=== PATIENT | male | born 1990 | race Caucasian/White ===

== ENCOUNTER 2019-10-09 12:56 | Inpatient (IN) | payer OTHER ==
[2019-10-09 19:31] VITALS: BMI 30.2
--- NOTE | 2019-10-09 20:41 | HP ---
CIWA Score Nausea/Vomitin-Mild Nausea/No Vomiting Muscle Tremors: 3 Anxiety: 4-Mod. Anxious/Guarded Agitation: 4-Moderately Restless Paroxysmal Sweats: 3 Orientation: 0-Oriented Tacttile Disturbances: 0-None Auditory Disturbances: 0-None Visual Disturbances: 0-None Headache: 0-None Present CIWA-Ar Total Score: 15 - Admission Criteria [facility]ASAS Guidelines: Admission for Medically Managed Detox: Requires at least one of the followin. CIWA greater than 12 2. Seizures within the past 24 hours 3. Delirium tremens within the past 24 hours 4. Hallucinations within the past 24 hours 5. Acute intervention needed for co occurring medical disorder 6. Acute intervention needed for co occurring psychiatric disorder 7. Severe withdrawal that cannot be handled at a lower level of care (continued vomiting, continued diarrhea, abnormal vital signs) requiring intravenous medication and/or fluids 8. Admission [facility] Chief Complaint: Alcohol withdrawal symptoms Allergies/Adverse Reactions: Allergies Allergy/AdvReac Type Severity Reaction Status Date / Time No Known Allergies Allergy Verified 10/09/19 19:31 History of Present Illness: 29 years old male with 15 years of alcohol dependence is seeking admission to detox. Patient reports that he has been in multiple inpatient detox and the longest period of sobriety is 30 months. He has medical history seizure and reports psych. history of bipolar disorder, schizophrenia and depression. He denies suicide attempt and suicidal ideation at this time. Patient is detoxing from alcohol, Xanax and heroin. His drug screen is positive for only cocaine, MET and BZO. Patient has active prescription of BZO that was dispensed on 2018. Exam Limitations: Intoxication - Ebola screening Have you traveled outside of the country in the last 21 days: No (NN) Have you had contact with anyone from an Ebola affected area: No Do you have a fever: No - Review of Systems Constitutional: Chills, Malaise, Changes in sleep EENT: reports: No Symptoms Reported Respiratory: reports: No Symptoms reported Cardiac: reports: No Symptoms Reported GI: reports: Poor Fluid Intake, Abdominal cramping : reports: No Symptoms Reported Musculoskeletal: reports: Back Pain, Other (ABDOMINAL DISCOMFORT) Integumentary: reports: Dryness, Flushing Neuro: reports: Tremors Endocrine: reports: No Symptoms Reported Hematology: reports: No Symptoms Reported Psychiatric: reports: Mood/Affect Appropiate, Orientated x3, Anxious, Depressed Other Systems: Reviewed and Negative Patient History - Patient Medical History Hx Anemia: No Hx Asthma: No Hx Chronic Obstructive Pulmonary Disease (COPD): No Hx Cancer: No Hx Cardiac Disorders: No Hx Congestive Heart Failure: No Hx Hypertension: No Hx Hypercholesterolemia: No Hx Pacemaker: No HX Cerebrovascular Accident: No Hx Seizures: No Hx Diabetes: No Hx Gastrointestinal Disorders: No Hx Liver Disease: No Hx Genitourinary Disorders: No Hx Sexually Transmitted Disorders: No Hx Renal Disease (ESRD): No Hx Thyroid Disease: No Hx Human Immunodeficiency Virus (HIV): No (Negative 2018) Hx Hepatitis C: No Hx Depression: Yes Hx Suicide Attempt: No (Denies suicidal ideation at this time) Hx Bipolar Disorder: Yes Hx Schizophrenia: Yes - Patient Surgical History Past Surgical History: No - PPD History Previous Implant?: Yes Documented Results: Negative w/o proof Implanted On Prior [facility] Admission?: No PPD to be Administered?: Yes - Reproductive History Patient is a Female of Child Bearing Age (11 -55 yrs old): No (MALE) - Smoking Cessation Smoking history: Current every day smoker Have you smoked in the past 12 months: Yes Aproximately how many cigarettes per day: 20 Hx Chewing Tobacco Use: No Initiated information on smoking cessation: Yes 'Breaking Loose' booklet given: 10/09/19 - Substance & Tx. History Hx Alcohol Use: Yes Hx Substance Use: Yes Substance Use Type: Alcohol, Cocaine, Prescribed - Substances abused Heroin Substance route: Inhalation Frequency: Daily Amount used: 3 bags Age of first use: 18 Date of last use: 10/08/19 Alprazolam (Xanax) Substance route: Oral Frequency: Daily Amount used: 3 of 2 mg Age of first use: 18 Date of last use: 10/08/19 Alcohol Substance route: Oral Frequency: Daily Amount used: 3 pints of vodka,gin, 2 beers. Age of first use: 15 Date of last use: 10/09/19 Admission Physical Exam [facility] - Vital Signs Vital Signs: Vital Signs - 24 hr 10/09/19 19:17 Temperature 97.1 F L Pulse Rate 129 H Respiratory 16 Rate Blood Pressure 151/71 - Physical General Appearance: Yes: Moderate Distress, Tremorous, Anxious HEENTM: Yes: Within Normal Limits, Normal ENT Inspection, Normal Voice Respiratory: Yes: Lungs Clear, Normal Breath Sounds, No Respiratory Distress Neck: Yes: Within Normal Limits Breast: Yes: Within Normal Limits Cardiology: Yes: Tachycardia Abdominal: Yes: Normal Bowel Sounds, Soft Genitourinary: Yes: Within Normal Limits Back: Yes: Normal Inspection Musculoskeletal: Yes: Within Normal Limits Extremities: Yes: Tremors Neurological: Yes: Within Normal Limits, Alert, Normal Mood/Affect Integumentary: Yes: Warm Lymphatic: Yes: Within Normal Limits - Diagnostic (1) Alcohol dependence with withdrawal, uncomplicated Current Visit: Yes Status: Acute (2) Nicotine dependence Current Visit: Yes Status: Acute Qualifiers: Nicotine product type: cigarettes Substance use status: uncomplicated Qualified Code(s): F17.210 - Nicotine dependence, cigarettes, uncomplicated (3) Seizure Current Visit: Yes Status: Acute Cleared for Admission S - Detox or Rehab [facility] Level of Care: Medically Managed Detox Regimen/Protocol: Librium Breathalyzer - Breathalyzer Breathalyzer: 147 Urine Drug Screen - Test Device Lot number: [id number] Expiration date: 05/31/21 - Control Is test valid?: Yes - Results Drug screen NEGATIVE: No Urine drug screen results: ASHLEY-Cocaine, MET-Methamphetamine Inpatient Rehab Admission - Rehab Decision to Admit Inpatient rehab admission?: No
[2019-10-09] MEDS ORDERED: MELATONIN 5 MG TABLETS PO PRN (20:57)
[2019-10-09] MEDS ORDERED: BISMUTH SUBSALICYLATE 524 MG/30 ML UD PO PRN (20:57)
[2019-10-09] MEDS ORDERED: ACETAMINOPHEN 325 MG TABLET (FP) PO PRN ×2 (20:57)
[2019-10-09] MEDS ORDERED: hydrOXYzine PAMOATE 25 MG CAPSULE (FP) PO PRN (20:57)
[2019-10-09] MEDS ORDERED: MAGNESIUM HYDROX 2400MG/30ML ORAL SUSPENSION 30 ML CUP PO PRN (20:57)
[2019-10-09] MEDS ORDERED: MENTHOL/PHENOL 1 EACH UD MM PRN (20:57)
[2019-10-09] MEDS ORDERED: IBUPROFEN 400 MG TABLET (FP) PO PRN (20:57)
[2019-10-09] MEDS ORDERED: NICOTINE POLACRILEX 2 MG GUM BUC PRN (20:57)
[2019-10-09] MEDS ORDERED: METHOCARBAMOL 500 MG TABLET PO PRN (20:57)
[2019-10-09] MEDS ORDERED: MAGNESIUM CITRATE 300 ML BOTTLE PO PRN (20:57)
[2019-10-09] MEDS ORDERED: MAG HYDROX/AL HYDROX/SIMETH 30 ML UNIT-DOSE CUP PO PRN (20:57)
[2019-10-09] MEDS ORDERED: chlordiazePOXIDE HCL 25 MG CAPSULE PO PRN (20:57)
[2019-10-09] MEDS: DIVALPROEX SODIUM 250 MG TABLET E.C. PO SCH (21:49)
[2019-10-09] MEDS: THIAMINE HCL 100 MG TABLET (FP) PO SCH (21:50)
[2019-10-09] MEDS: chlordiazePOXIDE HCL 25 MG CAPSULE PO SCH (22:42)
[2019-10-10] MEDS: chlordiazePOXIDE HCL 25 MG CAPSULE PO SCH ×4 (06:48→22:44)
[2019-10-10] MEDS: NICOTINE 21 MG/24 HOURS TOPICAL PATCH TD SCH (10:54)
[2019-10-10] MEDS: PRENATAL VITAMINS W/ FOLIC ACID TABLET (FP) PO SCH (10:54)
[2019-10-10 11:03] LABS: BILIRUBIN,TOTAL 0.6 mg/dL (0.2-1); BLOOD UREA NITROGEN 13.9 mg/dL (7-18); CALCIUM 8.5 mg/dL (8.5-10.1); CREATININE 0.9 mg/dL (0.55-1.3); POTASSIUM 3.9 mmol/L (3.5-5.1); TOT PROT 6.9 g/dl (6.4-8.2)
[2019-10-10 11:04] LABS: HEMATOCRIT 41.7 % (35.4-49); HEMOGLOBIN 14.1 GM/dL (11.7-16.9); MCH 30.3 pg (25.7-33.7); MCHC 33.9 g/dl (32.0-35.9); MEAN CELL VOLUME 89.3 fl (80-96); MEAN PLT VOLUME 10.5 fl (7.5-11.1); PLATELET COUNT 160 K/MM3 (134-434); RBC 4.67 M/mm3 (4.00-5.60); RDW 13.9 % (11.9-15.9); WHITE BLOOD COUNT 5.3 K/mm3 (4.0-10.0)
--- NOTE | 2019-10-10 11:31 | EKG ---
Test Reason : Blood Pressure : / mmHG Vent. Rate : 107 BPM Atrial Rate : 107 BPM P-R Int : 152 ms QRS Dur : 098 ms QT Int : 332 ms P-R-T Axes : 051 047 049 degrees QTc Int : 443 ms SINUS TACHYCARDIA LEFT ATRIAL ENLARGEMENT INCOMPLETE RIGHT BUNDLE BRANCH BLOCK BORDERLINE ECG NO PREVIOUS ECGS AVAILABLE Confirmed by CORTEZ VELAZQUEZ, ARABELLA ([id number]) on 10/10/2019 11:31:20 AM Referred By: Confirmed By:ARABELLA TORO MD
--- NOTE | 2019-10-10 12:16 | PN ---
S CIWA - CIWA Score Nausea/Vomitin-No Nausea/No Vomiting Muscle Tremors: 3 Anxiety: 3 Agitation: 4-Moderately Restless Paroxysmal Sweats: 3 Orientation: 0-Oriented Tacttile Disturbances: 0-None Auditory Disturbances: 0-None Visual Disturbances: 0-None Headache: 0-None Present CIWA-Ar Total Score: 13 [facility] Progress Note (SOAP) Subjective: chills sweats mild shakes Objective: 10/10/19 12:15 Vital Signs Temperature 97.1 F L 10/10/19 09:46 Pulse Rate 111 H 10/10/19 09:46 Respiratory Rate 16 10/10/19 09:46 Blood Pressure 120/69 10/10/19 09:46 O2 Sat by Pulse Oximetry (%) Laboratory Tests 10/10/19 10/10/19 10/10/19 07:50 07:50 07:50 WBC 5.3 RBC 4.67 Hgb 14.1 Hct 41.7 MCV 89.3 MCH 30.3 MCHC 33.9 RDW 13.9 Plt Count 160 MPV 10.5 Sodium 139 Potassium 3.9 Chloride 105 Carbon Dioxide 28 Anion Gap 6 L BUN 13.9 Creatinine 0.9 Est GFR (CKD-EPI)AfAm 134.24 Est GFR (CKD-EPI)NonAf 115.82 Random Glucose 85 Calcium 8.5 Total Bilirubin 0.6 AST 51 H ALT 165 H Alkaline Phosphatase 79 Total Protein 6.9 Albumin 4.0 Valproic Acid 16.0 L RPR Titer 10/10/19 07:50 WBC RBC Hgb Hct MCV MCH MCHC RDW Plt Count MPV Sodium Potassium Chloride Carbon Dioxide Anion Gap BUN Creatinine Est GFR (CKD-EPI)AfAm Est GFR (CKD-EPI)NonAf Random Glucose Calcium Total Bilirubin AST ALT Alkaline Phosphatase Total Protein Albumin Valproic Acid RPR Titer Nonreactive labs noted aaox3 ambulating no acute distress Assessment: 10/10/19 12:16 withdrawal sx Plan: continue detox increase fluids
--- NOTE | 2019-10-10 16:30 | CONSULT ---
[facility] Psychiatric Consult - Data Date of interview: 10/10/19 Admission source: [facility] Identifying data: First admission to [facility] for this 29 y/o male self-referred for detoxification (heroin, cocaine, alcohol, metamphetamine, nicotine). Interviewed at [address] [place] [address]. Patient is single, no children, domiciled ( lives with his mother), unemployed and supported financially by relatives. Substance Abuse History: Discussed with patient. Details in current [facility] report as follows : Smoking history: Current every day smoker. Have you smoked in the past 12 months: Yes. Aproximately how many cigarettes per day: 20. Hx Chewing Tobacco Use: No. Initiated information on smoking cessation: Yes. 'Breaking Loose' booklet given: 10/09/19. - Substance & Tx. History. Hx Alcohol Use: Yes. Hx Substance Use: Yes. Substance Use Type: Alcohol, Cocaine, Prescribed. - Substances abused. Heroin. Substance route: Inhalation. Frequency: Daily. Amount used: 3 bags. Age of first use: 18. Date of last use: . Alprazolam (Xanax). Substance route: Oral. Frequency: Daily. Amount used: 3 of 2 mg. Age of first use: 18. Date of last use: 10/08/19. Alcohol. Substance route: Oral. Frequency: Daily. Amount used: 3 pints of vodka,gin, 2 beers. Age of first use: 15. Date of last use: 10/09/19 Medical History: Patient endorses good general health. Psychiatric History: Patient endorses a history of multiple psychiatric hospitalizations ([facility] [place], [facility] , [facility]). Mr Gandhi reports diagnoses of MDD, ADHD and Bipolar Disorder. Admits to past treatment with risperdal, haloperidol, rexulti, olanzapine, quetiapine, provigil, memantine and protryptiline. Patient reports also history of chronic non-adherence to medications + OPD care. " I used to see a private psychiatrist, Dr Montanez, in [place]." Patient is evasive about date of his most recent intake of medications. Denies history of suicide attempts. Physical/Sexual Abuse/Trauma History: Patient denies. Additional Comment: Urine drug screen results: ASHLEY-Cocaine, MET- Methamphetamine. Noted. Mental Status Exam - Mental Status Exam Alert and Oriented to: Time, Place, Person Cognitive Function: Good Patient Appearance: Unkempt, Disheveled (obese, covered with tattoos) Mood: Withdrawn Affect: Mood Congruent, Constricted Patient Behavior: Fatigued, Cooperative Speech Pattern: Clear Voice Loudness: Normal Thought Process: Goal Oriented Thought Disorder: Not Present Hallucinations: Denies Suicidal Ideation: Denies Homicidal Ideation: Denies Insight/Judgement: Poor Sleep: Well Appetite: Good Muscle strength/Tone: Normal (no complaint offered) Gait/Station: Normal Psychiatric Findings - Problem List ([place] 1, 2,3) (1) Alcohol dependence with withdrawal, uncomplicated Current Visit: Yes Status: Acute (2) Nicotine dependence Current Visit: Yes Status: Chronic Qualifiers: Nicotine product type: cigarettes Substance use status: uncomplicated Qualified Code(s): F17.210 - Nicotine dependence, cigarettes, uncomplicated (3) Cocaine use disorder Current Visit: Yes Status: Chronic (4) Substance induced mood disorder Current Visit: Yes Status: Chronic (5) History of attention deficit hyperactivity disorder (ADHD) Current Visit: Yes Status: Chronic (6) History of bipolar disorder Current Visit: Yes Status: Chronic (7) Non-compliance Current Visit: Yes Status: Chronic - Initial Treatment Plan Initial Treatment Plan: Psychoeducation. Sleep hygiene. Detoxification. AA/NA meetings. Patient requested to resume olanzapine in this hospital course. Zyprexa 5 mg po hs. Side effects/benefits discussed with the patient. Mr Gaytan is in agreement with this plan of care. There is no pharmacy on file for verification of the other medications reported by the patient (in fact, the patient has admitted to this designer writer that he has NOT taken medications for " a while ", not in past four months for some formulations). Observation.
[2019-10-10] MEDS: OLANZapine 5 MG TABLET PO SCH (22:44)
[2019-10-10] MEDS: THIAMINE HCL 100 MG TABLET (FP) PO SCH (22:44)
[2019-10-10] MEDS: DIVALPROEX SODIUM 250 MG TABLET E.C. PO SCH (22:44)
[2019-10-11] MEDS: chlordiazePOXIDE HCL 25 MG CAPSULE PO SCH ×4 (06:22→22:41)
--- NOTE | 2019-10-11 10:54 | EKG ---
Test Reason : Blood Pressure : / mmHG Vent. Rate : 102 BPM Atrial Rate : 102 BPM P-R Int : 148 ms QRS Dur : 104 ms QT Int : 348 ms P-R-T Axes : 058 034 058 degrees QTc Int : 453 ms SINUS TACHYCARDIA INCOMPLETE RIGHT BUNDLE BRANCH BLOCK BORDERLINE ECG WHEN COMPARED WITH ECG OF 09-OCT-2019 22:15, NO SIGNIFICANT CHANGE WAS FOUND Confirmed by ARABELLA TORO MD ([id number]) on 10/11/2019 10:54:10 AM Referred By: Confirmed By:ARABELLA TORO MD
[2019-10-11] MEDS: NICOTINE 21 MG/24 HOURS TOPICAL PATCH TD SCH (11:01)
[2019-10-11] MEDS: PRENATAL VITAMINS W/ FOLIC ACID TABLET (FP) PO SCH (11:01)
[2019-10-11] MEDS ORDERED: cloNIDine HCL 0.1 MG TABLET PO PRN (15:30)
--- NOTE | 2019-10-11 15:31 | PN ---
[facility] CIWA - CIWA Score Nausea/Vomitin-Mild Nausea/No Vomiting Muscle Tremors: 3 Anxiety: 2 Agitation: 2 Paroxysmal Sweats: 3 Orientation: 0-Oriented Tacttile Disturbances: 0-None Auditory Disturbances: 0-None Visual Disturbances: 0-None Headache: 0-None Present CIWA-Ar Total Score: 11 [facility] Progress Note (SOAP) Subjective: Feeling depressed because saw Psychiatrist yesterday and not getting all of home medication. Feels ok otherwise as medication helping symptoms of withdrawal , denies SI/HI. Requesting to see Psychiatrist. Patient is anxious. Objective: 10/11/19 15:27 Last Vital Signs Temp Pulse Resp BP Pulse Ox 97.9 F 107 H 18 135/73 10/11/19 14:12 10/11/19 14:12 10/11/19 14:12 10/11/19 14:12 Elevated b/p and tachycardia Laboratory Tests 10/10/19 10/10/19 10/10/19 07:50 07:50 07:50 WBC 5.3 RBC 4.67 Hgb 14.1 Hct 41.7 MCV 89.3 MCH 30.3 MCHC 33.9 RDW 13.9 Plt Count 160 MPV 10.5 Sodium 139 Potassium 3.9 Chloride 105 Carbon Dioxide 28 Anion Gap 6 L BUN 13.9 Creatinine 0.9 Est GFR (CKD-EPI)AfAm 134.24 Est GFR (CKD-EPI)NonAf 115.82 Random Glucose 85 Calcium 8.5 Total Bilirubin 0.6 AST 51 H ALT 165 H Alkaline Phosphatase 79 Total Protein 6.9 Albumin 4.0 Valproic Acid 16.0 L RPR Titer 10/10/19 07:50 WBC RBC Hgb Hct MCV MCH MCHC RDW Plt Count MPV Sodium Potassium Chloride Carbon Dioxide Anion Gap BUN Creatinine Est GFR (CKD-EPI)AfAm Est GFR (CKD-EPI)NonAf Random Glucose Calcium Total Bilirubin AST ALT Alkaline Phosphatase Total Protein Albumin Valproic Acid RPR Titer Nonreactive Labs reviewed: AST/ALT elevated Assessment: 10/11/19 15:28 Withdrawal sxs Noted with elevated b/p, tachycardia, elevated LFTs (AST/ALT) Plan: Continue detox Encouraged PO water intake Elevated b/p: denies htn, most likely due to withdrawal, start clonidine prn Tachycardia: most likely due to anxiety and withdrawal, continue detox protocol , encouraged PO water hydration Elevated LFTs (AST/ALT): most likely due to alcohol dependence, repeat AST, ALT
[2019-10-11] MEDS: DIVALPROEX SODIUM 250 MG TABLET E.C. PO SCH (22:41)
[2019-10-11] MEDS: OLANZapine 5 MG TABLET PO SCH (22:41)
[2019-10-11] MEDS: THIAMINE HCL 100 MG TABLET (FP) PO SCH (22:41)
[2019-10-12] MEDS ORDERED: chlordiazePOXIDE HCL 10 MG CAPSULE PO PRN
[2019-10-12] MEDS: chlordiazePOXIDE HCL 10 MG CAPSULE PO SCH ×2 (06:11→10:16)
[2019-10-12 09:47] VITALS: BP 126/65; PULSE 103; TEMP 97.1
[2019-10-12 09:51] LABS: SGOT/AST 23 U/L (15-37); SGPT/ALT 95 U/L (13-61)
[2019-10-12] MEDS: NICOTINE 21 MG/24 HOURS TOPICAL PATCH TD SCH (10:13)
[2019-10-12] MEDS: PRENATAL VITAMINS W/ FOLIC ACID TABLET (FP) PO SCH (10:14)
--- NOTE | 2019-10-12 10:58 | PN ---
S CIWA - CIWA Score Nausea/Vomitin-No Nausea/No Vomiting Muscle Tremors: 1-None Visible, but [place] Anxiety: 1-Mildly Anxious Agitation: 1-Slight > Activity Paroxysmal Sweats: No Perspiration Orientation: 0-Oriented Tacttile Disturbances: 0-None Auditory Disturbances: 0-None Visual Disturbances: 0-None Headache: 1-Very Mild CIWA-Ar Total Score: 4 [facility] Progress Note (SOAP) Subjective: alert,anxious,no other complaint,feeling good,no withdrawal symptom Objective: 10/12/19 10:54 Vital Signs Temperature 97.1 F L 10/12/19 09:46 Pulse Rate 103 H 10/12/19 09:46 Respiratory Rate 18 10/12/19 09:46 Blood Pressure 126/65 10/12/19 09:46 O2 Sat by Pulse Oximetry (%) Laboratory Last Values WBC 5.3 K/mm3 (4.0-10.0) 10/10/19 07:50 RBC 4.67 M/mm3 (4.00-5.60) 10/10/19 07:50 Hgb 14.1 GM/dL (11.7-16.9) 10/10/19 07:50 Hct 41.7 % (35.4-49) 10/10/19 07:50 MCV 89.3 fl (80-96) 10/10/19 07:50 MCH 30.3 pg (25.7-33.7) 10/10/19 07:50 MCHC 33.9 g/dl (32.0-35.9) 10/10/19 07:50 RDW 13.9 % (11.9-15.9) 10/10/19 07:50 Plt Count 160 K/MM3 (134-434) 10/10/19 07:50 MPV 10.5 fl (7.5-11.1) 10/10/19 07:50 Sodium 139 mmol/L (136-145) 10/10/19 07:50 Potassium 3.9 mmol/L (3.5-5.1) 10/10/19 07:50 Chloride 105 mmol/L (98-107) 10/10/19 07:50 Carbon Dioxide 28 mmol/L (21-32) 10/10/19 07:50 Anion Gap 6 MMOL/L (8-16) L 10/10/19 07:50 BUN 13.9 mg/dL (7-18) 10/10/19 07:50 Creatinine 0.9 mg/dL (0.55-1.3) 10/10/19 07:50 Est GFR (CKD-EPI)AfAm 134.24 10/10/19 07:50 Est GFR (CKD-EPI)NonAf 115.82 10/10/19 07:50 Random Glucose 85 mg/dL (74-106) 10/10/19 07:50 Calcium 8.5 mg/dL (8.5-10.1) 10/10/19 07:50 Total Bilirubin 0.6 mg/dL (0.2-1) 10/10/19 07:50 AST 23 U/L (15-37) 10/12/19 07:50 ALT 95 U/L (13-61) H 10/12/19 07:50 Alkaline Phosphatase 79 U/L (45-117) 10/10/19 07:50 Total Protein 6.9 g/dl (6.4-8.2) 10/10/19 07:50 Albumin 4.0 g/dl (3.4-5.0) 10/10/19 07:50 Valproic Acid 16.0 ug/mL (50-100) L 10/10/19 07:50 RPR Titer Nonreactive (NONREACTIVE) 10/10/19 07:50 Assessment: 10/12/19 10:55 no withdrawal symptom Plan: stable for discharge today,no suicidal,no homicidal,stable for discharge today.follow up with [facility] as arrangement, patient 's mother will picker/puller the patient
--- NOTE | 2019-10-12 11:00 | DS ---
[facility] Detox Discharge Summary Admission Date: 10/09/19 Discharge Date: 10/12/19 - History Present History: Alcohol Dependence, Cocaine Dependence, Sedative Dependence Additional Comments: karen is stable for discharge today,follow up with [facility] as arrangement Pertinent Past History: history of adhd history of bipolar disorder - Physical Exam Results Vital Signs: Vital Signs Temperature 97.1 F L 10/12/19 09:46 Pulse Rate 103 H 10/12/19 09:46 Respiratory Rate 18 10/12/19 09:46 Blood Pressure 126/65 10/12/19 09:46 O2 Sat by Pulse Oximetry (%) Pertinent Admission Physical Exam Findings: withdrawal signs and symptom Vital Signs Temperature 97.1 F L 10/12/19 09:46 Pulse Rate 103 H 10/12/19 09:46 Respiratory Rate 18 10/12/19 09:46 Blood Pressure 126/65 10/12/19 09:46 O2 Sat by Pulse Oximetry (%) Laboratory Last Values WBC 5.3 K/mm3 (4.0-10.0) 10/10/19 07:50 RBC 4.67 M/mm3 (4.00-5.60) 10/10/19 07:50 Hgb 14.1 GM/dL (11.7-16.9) 10/10/19 07:50 Hct 41.7 % (35.4-49) 10/10/19 07:50 MCV 89.3 fl (80-96) 10/10/19 07:50 MCH 30.3 pg (25.7-33.7) 10/10/19 07:50 MCHC 33.9 g/dl (32.0-35.9) 10/10/19 07:50 RDW 13.9 % (11.9-15.9) 10/10/19 07:50 Plt Count 160 K/MM3 (134-434) 10/10/19 07:50 MPV 10.5 fl (7.5-11.1) 10/10/19 07:50 Sodium 139 mmol/L (136-145) 10/10/19 07:50 Potassium 3.9 mmol/L (3.5-5.1) 10/10/19 07:50 Chloride 105 mmol/L (98-107) 10/10/19 07:50 Carbon Dioxide 28 mmol/L (21-32) 10/10/19 07:50 Anion Gap 6 MMOL/L (8-16) L 10/10/19 07:50 BUN 13.9 mg/dL (7-18) 10/10/19 07:50 Creatinine 0.9 mg/dL (0.55-1.3) 10/10/19 07:50 Est GFR (CKD-EPI)AfAm 134.24 10/10/19 07:50 Est GFR (CKD-EPI)NonAf 115.82 10/10/19 07:50 Random Glucose 85 mg/dL (74-106) 10/10/19 07:50 Calcium 8.5 mg/dL (8.5-10.1) 10/10/19 07:50 Total Bilirubin 0.6 mg/dL (0.2-1) 10/10/19 07:50 AST 23 U/L (15-37) 10/12/19 07:50 ALT 95 U/L (13-61) H 10/12/19 07:50 Alkaline Phosphatase 79 U/L (45-117) 10/10/19 07:50 Total Protein 6.9 g/dl (6.4-8.2) 10/10/19 07:50 Albumin 4.0 g/dl (3.4-5.0) 10/10/19 07:50 Valproic Acid 16.0 ug/mL (50-100) L 10/10/19 07:50 RPR Titer Nonreactive (NONREACTIVE) 10/10/19 07:50 - Treatment Hospital Course: Detox Protocol Followed, Detoxed Safely, Responded well, Discharged Condition Good, Rehab Referral Accepted Patient has Accepted a Rehab Referral to: [facility] rehab - Medication Discharge Medications: Ambulatory Orders Divalproex [Depakote -] 250 mg PO HS 10/09/19 Modafinil 1 tablet PO BID 10/09/19 Trihexyphenidyl HCl [Artane] 5 mg PO HS 10/09/19 Trihexyphenidyl HCl [Artane] 10 mg PO DAILY 10/09/19 - Diagnosis (1) Alcohol dependence with withdrawal, uncomplicated Current Visit: Yes Status: Acute (2) Cocaine use disorder Current Visit: Yes Status: Chronic (3) History of attention deficit hyperactivity disorder (ADHD) Current Visit: Yes Status: Chronic (4) History of bipolar disorder Current Visit: Yes Status: Chronic (5) Nicotine dependence Current Visit: Yes Status: Chronic Qualifiers: Nicotine product type: cigarettes Substance use status: uncomplicated Qualified Code(s): F17.210 - Nicotine dependence, cigarettes, uncomplicated (6) Uncomplicated sedative, hypnotic or anxiolytic withdrawal Current Visit: Yes Status: Acute - AMA Did Patient Leave Against Medical Advice: No
[2019-10-13] MEDS ORDERED: chlordiazePOXIDE HCL 10 MG CAPSULE PO SCH (05:00)
[2019-10-14] MEDS ORDERED: chlordiazePOXIDE HCL 10 MG CAPSULE PO ONE (05:00)
== END 2019-10-12 11:58 | disposition home or self-care (01) | DRG 773 ==
LOC: YASAS 12:56 → Y6N 21:08
PROVIDERS: ADMIT Allergy & Immunology; ATTEND Allergy & Immunology
PROC: HZ2ZZZZ Detoxification Services for Substance Abuse Treatment (ICD-10-PCS; principal; 2019-10-09)
DX: F10.230 Alcohol dependence with withdrawal, uncomplicated (principal); F13.230 Sedative, hypnotic or anxiolytic dependence with withdrawal, uncomplicated; F11.20 Opioid dependence, uncomplicated; F14.20 Cocaine dependence, uncomplicated; F17.210 Nicotine dependence, cigarettes, uncomplicated; F19.24 Other psychoactive substance dependence with psychoactive substance-induced mood disorder; F31.9 Bipolar disorder, unspecified; F90.9 Attention-deficit hyperactivity disorder, unspecified type; R56.9 Unspecified convulsions; Z91.19 Patient's noncompliance with other medical treatment and regimen
CPT/HCPCS: 36415; 80053; 80164; 84450; 84460; 85027; 86593; 93005; 93010

== ENCOUNTER 2019-10-13 06:25 | Emergency (ER) | payer OTHER ==
[2019-10-13 07:01] VITALS: TEMP 98.1; BMI 31.1
[2019-10-13] MEDS ORDERED: ACETAMINOPHEN 325 MG TABLET (FP) PO ONE (07:40)
--- NOTE | 2019-10-13 07:41 | PDOC ---
History of Present Illness - General Chief Complaint: Alcohol intoxication Stated Complaint: INTOX History Source: Patient Exam Limitations: No Limitations - History of Present Illness Initial Comments: 10/13/19 07:41 29y M hx of bipolar, polysubstance abuse, persents with complaint of etoh intoxication. Patient states he was recently at [facility] getting detox and was discharged after 2 days states that he was drinking again yesterday states had 3 pints of vodka. Patient endorses mild headache and feels like "he might go into withdrawal". Patient denies any vision changes, nausea, vomiting, focal numbness, tingling, weakness, neck pain, back pain, chest pain, abdominal pain, fever, chills, dysuria, diarrhea, body stool. Patient states he is interested in detox however he was just discharged from [facility] states he would like to go to [facility] which [facility]. He lives in [place]. Patient does endorse a mild headache Past History - Past Medical History Allergies/Adverse Reactions: Allergies Allergy/AdvReac Type Severity Reaction Status Date / Time No Known Allergies Allergy Verified 10/09/19 19:31 Home Medications: Ambulatory Orders Divalproex [Depakote -] 250 mg PO HS 10/09/19 Modafinil 1 tablet PO BID 10/09/19 Trihexyphenidyl HCl [Artane] 5 mg PO HS 10/09/19 Trihexyphenidyl HCl [Artane] 10 mg PO DAILY 10/09/19 Anemia: No Asthma: No Cancer: No Cardiac Disorders: No CVA: No COPD: No CHF: No Diabetes: No GI Disorders: No Disorders: No HTN: No Hypercholesterolemia: No Kidney Stones: No Liver Disease: No Seizures: No Thyroid Disease: No - Surgical History Abdominal Surgery: No Appendectomy: No Cardiac Surgery: No Cholecystectomy: No Lung Surgery: No Neurologic Surgery: No Orthopedic Surgery: No - Reproductive History Testicular Surgery: No - Psycho Social/Smoking Cessation Hx Smoking History: Current every day smoker Have you smoked in the past 12 months: Yes Number of Cigarettes Smoked Daily: 20 Information on smoking cessation initiated: No 'Breaking Loose' booklet given: 10/09/19 Hx Alcohol Use: Yes Drug/Substance Use Hx: Yes Substance Use Type: Alcohol, Cocaine, Prescribed Hx Substance Use Treatment: Yes Review of Systems - Review of Systems Able to Perform ROS?: Yes Comments:: 10/13/19 08:09 ROS: Constitutional - no reported Fever, Chills, HEENT: no reported vision changes, sore throat Respiratory: no reported cough, sob, hemoptysis Cardiac: no reported chest pain, palpitations, light headedness, leg swelling Abd/GI: no reported abd pain, nausea, vomiting, blood per rectum, melena, diarrhea : no reported dysuria, frequency, discharge Musculskelatal - no reported back pain, joint swelling skin - no reported bruising, erythema, rash neurological: no reported headache, numbness, focal weakness, tingling, ataxia, hematologic: no reported easy bruising, easy bleeding *Physical Exam - Vital Signs Last Vital Signs Temp Pulse Resp BP Pulse Ox 98.1 F 101 H 18 116/67 97 10/13/19 06:55 10/13/19 06:55 10/13/19 06:55 10/13/19 06:55 10/13/19 06:55 - Physical Exam Comments: 10/13/19 08:09 Physicial Exam: GENERAL: The patient is awake, alert, and fully oriented, Nontoxic - in no acute distress. A tremulous HEAD: Normocephalic, atraumatic. EYES: extraocular movements intact, sclera anicteric, conjunctiva clear. ENT: Normal voice, Moist mucous membranes. No tongue fasciculations NECK: Normal range of motion, supple LUNGS: Breath sounds equal, clear to auscultation bilaterally. No wheezes, no rhonchi, no rales. HEART: Regular rate and rhythm, normal S1 and S2 without murmur, rub or gallop. ABDOMEN: Soft, nontender, No guarding, no rebound. No CVA tenderness EXTREMITIES: Normal range of motion, no edema. NEUROLOGICAL: No facial assymetry, Normal speech, PSYCH: Normal mood, normal affect. SKIN: Warm, Dry, normal turgor, Back: No midline tenderness to the cervical, thoracic or lumbar spine Musculoskelatal: FROM of b/l shoulders, elbows, wrist. FROM of hips, knees, ankles - No signs of ecchymosis, erythema, or crepitus noted on palpation extremities, chest wall, clavicals, ribs, back. ED Treatment Course - LABORATORY CBC & Chemistry Diagram: 10/13/19 09:35 10/13/19 09:35 Medical Decision Making - Medical Decision Making 10/13/19 08:09 We will give the patient a Motrin for his headache, the patient has no signs of withdrawal currently. pt notes he may hvae hda a fall/seizure last night. will obtain head ct/lab work 10/13/19 10:56 Patient patient's lab and CT are negative the patient is alert, oriented, ambulating with a normal gait without any signs of withdrawal. Will discharge patient home 10/13/19 12:56 pts vitals reviwed, tachy to 120, but suspect due to pt having just ambulated around (was on phone calling his mom) will orally hdyrate, no overt signs of tremulousnous/tongue fasciulations Discharge - Discharge Information Problems reviewed: Yes Clinical Impression/Diagnosis: Alcohol intoxication Qualifiers: Complication of substance-induced condition: uncomplicated Qualified Code(s): F10.920 - Alcohol use, unspecified with intoxication, uncomplicated Condition: Stable Disposition: HOME - Admission No - Follow up/Referral Referrals: ON STAFF,NOT [Primary Care Provider] - - Patient Discharge Instructions Patient Printed Discharge Instructions: DI for Alcohol Abuse Additional Instructions: Return to the emergency department immediately with ANY new, persistent or worsening symptoms. You MUST call and follow up with your doctor tomorrow for further evaluation of your symptoms. Results were discussed with you. Please make sure your doctor reviews the results of your emergency evaluation. Your Emergency Department visit is not complete without a follow up with your doctor. If you had any xrays during your visit, it was read preliminarily by myself, a Radiologist will review it and if there are any additional findings we will call you. Print Language: GABONESE - Post Discharge Activity
--- NOTE | 2019-10-13 07:46 | PDOC ---
Attending Attestation - HPI HPI: 10/13/19 07:43 entered in error, please see other note
[2019-10-13] MEDS ORDERED: ACETAMINOPHEN 325 MG TABLET (FP) ONE (08:56)
[2019-10-13 09:53] LABS: BASO % 0.4 % (0-2.0); EOS % 1.6 % (0-4.5); HEMATOCRIT 41.4 % (35.4-49); HEMOGLOBIN 14.2 GM/dL (11.7-16.9); LYMPH % 34.9 % (8-40); MCH 30.8 pg (25.7-33.7); MCHC 34.3 g/dl (32.0-35.9); MEAN CELL VOLUME 89.6 fl (80-96); MEAN PLT VOLUME 10.6 fl (7.5-11.1); MONO % 6.7 % (3.8-10.2); NEUT % 56.4 % (42.8-82.8); PLATELET COUNT 187 K/MM3 (134-434); RBC 4.62 M/mm3 (4.00-5.60); RDW 13.9 % (11.9-15.9); WHITE BLOOD COUNT 6.3 K/mm3 (4.0-10.0)
[2019-10-13 10:20] LABS: ALBUMIN 3.7 g/dl (3.4-5.0); BILIRUBIN,TOTAL 0.3 mg/dL (0.2-1); BLOOD UREA NITROGEN 6.6 mg/dL (7-18); CALCIUM 8.3 mg/dL (8.5-10.1); CREATININE 0.7 mg/dL (0.55-1.3); POTASSIUM 4.2 mmol/L (3.5-5.1); TOT PROT 6.8 g/dl (6.4-8.2)
[2019-10-13 13:20] VITALS: BP 135/77
[2019-10-13] MEDS ORDERED: chlordiazePOXIDE 5 MG CAPSULE PO ONE (13:21)
[2019-10-13] MEDS ORDERED: chlordiazePOXIDE 5 MG CAPSULE ONE (13:27)
[2019-10-13 13:33] VITALS: PULSE 108
== END 2019-10-13 13:45 | disposition home or self-care (01) ==
LOC: JER 06:25
DX: F10.120 Alcohol abuse with intoxication, uncomplicated (principal); R51 Headache; F31.9 Bipolar disorder, unspecified; F17.210 Nicotine dependence, cigarettes, uncomplicated
CPT/HCPCS: 36415; 70450-TC; 80053; 80307; 85025; 99284-25

== ENCOUNTER 2022-09-12 13:00 | Inpatient (IN) | payer OTHER ==
[2022-09-12 14:14] VITALS: BMI 27.2
[2022-09-12] MEDS ORDERED: MAG HYDROX/AL HYDROX/SIMETH 30 ML UNIT-DOSE CUP PO PRN (15:23)
[2022-09-12] MEDS ORDERED: LOPERAMIDE HCL 2 MG CAPSULE PO PRN (15:23)
[2022-09-12] MEDS ORDERED: IBUPROFEN 600 MG TABLET (FP) PO PRN (15:23)
[2022-09-12] MEDS ORDERED: BISMUTH SUBSALICYLATE 262 MG/15 ML BTL PO PRN (15:23)
[2022-09-12] MEDS ORDERED: BENZOCAINE/MENTHOL (CHLORASEPTIC ) LOZENGE MM PRN (15:23)
[2022-09-12] MEDS ORDERED: MAGNESIUM HYDROX 2400MG/30ML ORAL SUSPENSION 30 ML CUP PO PRN (15:23)
[2022-09-12] MEDS ORDERED: DICYCLOMINE HCL 10 MG CAPSULE PO PRN (15:23)
[2022-09-12] MEDS ORDERED: NALOXONE HCL (KLOXXADO) 8 MG SPRAY NS PRN (15:23)
[2022-09-12] MEDS ORDERED: ONDANSETRON *ODT* 4 MG TABLET SL PRN (15:23)
[2022-09-12] MEDS ORDERED: MAGNESIUM CITRATE 300 ML BOTTLE PO PRN (15:23)
[2022-09-12] MEDS ORDERED: NICOTINE 10 MG CARTRIDGE (INHALER) IH PRN (15:23)
[2022-09-12] MEDS ORDERED: IBUPROFEN 400 MG TABLET (FP) PO PRN (15:23)
[2022-09-12] MEDS ORDERED: METHOCARBAMOL 500 MG TABLET PO PRN (15:23)
[2022-09-12] MEDS ORDERED: ACETAMINOPHEN 325 MG TABLET (FP) PO PRN ×2 (15:23)
[2022-09-12] MEDS: diazePAM 5 MG TABLET PO SCH ×2 (16:48→22:08)
[2022-09-12] MEDS: PRENATAL VITAMINS W/ FOLIC ACID TABLET (FP) PO SCH (16:48)
[2022-09-12] MEDS: NICOTINE 21 MG/24 HOURS TOPICAL PATCH TD SCH (16:51)
[2022-09-12] MEDS: hydrOXYzine PAMOATE 25 MG CAPSULE (FP) PO SCH ×2 (18:13→22:08)
[2022-09-12] MEDS: MELATONIN 5 MG TABLETS PO SCH (22:08)
[2022-09-12] MEDS: THIAMINE HCL 100 MG TABLET (FP) PO SCH (22:08)
[2022-09-13] MEDS: diazePAM 5 MG TABLET PO SCH ×4 (05:36→22:32)
[2022-09-13] MEDS: hydrOXYzine PAMOATE 25 MG CAPSULE (FP) PO SCH ×5 (05:36→22:32)
[2022-09-13] MEDS: PRENATAL VITAMINS W/ FOLIC ACID TABLET (FP) PO SCH (10:07)
[2022-09-13] MEDS: NICOTINE 21 MG/24 HOURS TOPICAL PATCH TD SCH (10:08)
[2022-09-13 12:39] LABS: HEMATOCRIT 44.9 % (35.4-49); HEMOGLOBIN 14.7 GM/dL (11.7-16.9); MCH 28.5 pg (25.7-33.7); MCHC 32.8 g/dl (32.0-35.9); MEAN CELL VOLUME 86.7 fl (80-96); PLATELET COUNT 298 10^3/uL (134-434); RBC 5.18 M/mm3 (4.00-5.60); RDW 13.5 % (11.9-15.9); WHITE BLOOD COUNT 4.8 K/mm3 (4.0-10.0)
[2022-09-13 13:17] LABS: CALCIUM 9.2 mg/dL (8.5-10.1)
[2022-09-13 13:18] LABS: ALBUMIN 3.7 g/dl (3.4-5.0); BLOOD UREA NITROGEN 10.1 mg/dL (7-18)
[2022-09-13 13:22] LABS: CREATININE 0.9 mg/dL (0.55-1.3); TOT PROT 6.9 g/dl (6.4-8.2)
[2022-09-13] MEDS ORDERED: BENZTROPINE MESYLATE 1 MG TABLET PO SCH ×2 (22:00)
[2022-09-13] MEDS ORDERED: OLANZapine 5 MG TABLET PO SCH (22:00)
[2022-09-13] MEDS: MELATONIN 5 MG TABLETS PO SCH (22:33)
[2022-09-13] MEDS: THIAMINE HCL 100 MG TABLET (FP) PO SCH (22:37)
[2022-09-14] MEDS ORDERED: diazePAM 5 MG TABLET PO SCH (06:00)
[2022-09-14] MEDS: hydrOXYzine PAMOATE 25 MG CAPSULE (FP) PO SCH ×2 (06:06→11:21)
[2022-09-14 09:04] VITALS: BP 119/69; PULSE 99; RESP 18; TEMP 97.1
[2022-09-14] MEDS: NICOTINE 21 MG/24 HOURS TOPICAL PATCH TD SCH (11:21)
[2022-09-14] MEDS: PRENATAL VITAMINS W/ FOLIC ACID TABLET (FP) PO SCH (11:21)
[2022-09-15] MEDS ORDERED: diazePAM 5 MG TABLET PO SCH (06:00)
[2022-09-16] MEDS ORDERED: diazePAM 5 MG TABLET PO ONE (06:00)
== END 2022-09-14 10:20 | disposition left against medical advice (07) | DRG 770 ==
LOC: YASAS 13:00 → Y6N 15:39
PROVIDERS: ADMIT Allergy & Immunology; ATTEND Surgery
PROC: HZ2ZZZZ Detoxification Services for Substance Abuse Treatment (ICD-10-PCS; principal; 2022-09-12)
DX: F11.23 Opioid dependence with withdrawal (principal); F10.230 Alcohol dependence with withdrawal, uncomplicated; F13.20 Sedative, hypnotic or anxiolytic dependence, uncomplicated; F15.10 Other stimulant abuse, uncomplicated; F17.210 Nicotine dependence, cigarettes, uncomplicated; F19.282 Other psychoactive substance dependence with psychoactive substance-induced sleep disorder; F39 Unspecified mood [affective] disorder; F19.24 Other psychoactive substance dependence with psychoactive substance-induced mood disorder
CPT/HCPCS: 36415; 80053; 85027; 86780; C9803-CS; U0003; U0005

== ENCOUNTER 2023-09-02 14:39 | Inpatient (IN) | payer OTHER ==
[2023-09-02 15:01] VITALS: BMI 28.1
[2023-09-02] MEDS ORDERED: ACETAMINOPHEN 325 MG TABLET (FP) PO PRN (16:53)
[2023-09-02] MEDS ORDERED: MAG HYDROX/AL HYDROX/SIMETH 30 ML UNIT-DOSE CUP PO PRN (16:53)
[2023-09-02] MEDS ORDERED: IBUPROFEN 400 MG TABLET (FP) PO PRN (16:53)
[2023-09-02] MEDS ORDERED: guaiFENesin 600 MG TABLET.ER (FP) PO PRN (16:53)
[2023-09-02] MEDS ORDERED: MAGNESIUM HYDROX 2400MG/30ML ORAL SUSPENSION 30 ML CUP PO PRN (16:53)
[2023-09-02] MEDS ORDERED: LOPERAMIDE HCL 2 MG CAPSULE PO PRN (16:53)
[2023-09-02] MEDS ORDERED: LORazepam 1 MG TABLET PO PRN (16:53)
[2023-09-02] MEDS ORDERED: ONDANSETRON *ODT* 4 MG TABLET SL PRN (16:53)
[2023-09-02] MEDS ORDERED: POLYETHYLENE GLYCOL (HEALTHYLAX) 3350 17 GM PACKET PO PRN (16:53)
[2023-09-02] MEDS ORDERED: NALOXONE HCL (KLOXXADO) 8 MG SPRAY NS PRN (16:53)
[2023-09-02] MEDS ORDERED: BENZOCAINE/MENTHOL (CHLORASEPTIC ) LOZENGE MM PRN (16:53)
[2023-09-02] MEDS ORDERED: BISMUTH SUBSALICYLATE 524 MG/30 ML PO PRN (16:53)
[2023-09-02] MEDS ORDERED: NALOXONE HCL 0.4 MG/ML VIAL IM PRN (16:53)
[2023-09-02] MEDS ORDERED: BENZONATATE 200 MG CAPSULE PO PRN (16:53)
[2023-09-02] MEDS ORDERED: DICYCLOMINE HCL 10 MG CAPSULE PO PRN (16:53)
[2023-09-02] MEDS ORDERED: METOPROLOL TARTRATE 25 MG TABLET (FP) PO ONE (20:57)
[2023-09-02] MEDS: MELATONIN 5 MG TABLETS PO SCH (22:40)
[2023-09-02] MEDS: THIAMINE HCL 100 MG TABLET (FP) PO SCH (22:40)
[2023-09-02] MEDS: hydrOXYzine PAMOATE 25 MG CAPSULE (FP) PO PRN (22:40)
[2023-09-02] MEDS: LORazepam 2 MG TABLET PO SCH (22:45)
[2023-09-03] MEDS: LORazepam 2 MG TABLET PO SCH ×5 (05:50→22:20)
[2023-09-03] MEDS: PRENATAL VITAMINS W/ FOLIC ACID TABLET (FP) PO SCH (10:04)
[2023-09-03] MEDS: hydrOXYzine PAMOATE 25 MG CAPSULE (FP) PO PRN ×2 (10:05→22:25)
[2023-09-03 12:17] LABS: HEMATOCRIT 43.2 % (35.4-49); HEMOGLOBIN 14.6 GM/dL (11.7-16.9); MCH 29.2 pg (25.7-33.7); MCHC 33.8 g/dl (32.0-35.9); MEAN CELL VOLUME 86.4 fl (80-96); MEAN PLT VOLUME 10.2 fl (7.5-11.1); PLATELET COUNT 263 10^3/uL (134-434); RDW 13.5 % (11.9-15.9); WHITE BLOOD COUNT 5.4 K/mm3 (4.0-10.0)
[2023-09-03 13:21] LABS: POTASSIUM 4.2 mmol/L (3.5-5.1)
[2023-09-03 13:24] LABS: ALBUMIN 4.4 g/dl (3.4-5.0)
[2023-09-03 13:28] LABS: BILIRUBIN,TOTAL 0.6 mg/dL (0.2-1); BLOOD UREA NITROGEN 15.4 mg/dL (7-18); TOT PROT 7.7 g/dl (6.4-8.2)
[2023-09-03] MEDS: NICOTINE 14 MG/24 HOURS TOPICAL PATCH TD SCH (14:15)
[2023-09-03] MEDS: OLANZapine 5 MG TABLET PO SCH (22:20)
[2023-09-03] MEDS: MELATONIN 5 MG TABLETS PO SCH (22:20)
[2023-09-03] MEDS: BENZTROPINE MESYLATE 1 MG TABLET PO SCH (22:20)
[2023-09-03] MEDS: THIAMINE HCL 100 MG TABLET (FP) PO SCH (22:20)
[2023-09-03] MEDS: METHOCARBAMOL 500 MG TABLET PO PRN (22:23)
[2023-09-04] MEDS: LORazepam 1 MG TABLET PO SCH ×4 (05:10→22:52)
[2023-09-04] MEDS: PRENATAL VITAMINS W/ FOLIC ACID TABLET (FP) PO SCH (10:20)
[2023-09-04] MEDS: NICOTINE 14 MG/24 HOURS TOPICAL PATCH TD SCH (10:20)
[2023-09-04] MEDS: METHOCARBAMOL 500 MG TABLET PO PRN (12:25)
[2023-09-04] MEDS: IBUPROFEN 600 MG TABLET (FP) PO PRN (12:25)
[2023-09-04] MEDS: BENZTROPINE MESYLATE 1 MG TABLET PO SCH (22:55)
[2023-09-04] MEDS: MELATONIN 5 MG TABLETS PO SCH (22:55)
[2023-09-04] MEDS: THIAMINE HCL 100 MG TABLET (FP) PO SCH (22:56)
[2023-09-04] MEDS: OLANZapine 5 MG TABLET PO SCH (22:56)
[2023-09-05] MEDS ORDERED: LORazepam 0.5 MG TABLET PO PRN
[2023-09-05] MEDS: LORazepam 0.5 MG TABLET PO SCH ×4 (05:59→22:07)
[2023-09-05] MEDS: PRENATAL VITAMINS W/ FOLIC ACID TABLET (FP) PO SCH (10:11)
[2023-09-05] MEDS: NICOTINE 14 MG/24 HOURS TOPICAL PATCH TD SCH (10:11)
[2023-09-05] MEDS: IBUPROFEN 600 MG TABLET (FP) PO PRN (20:52)
[2023-09-05] MEDS: BENZTROPINE MESYLATE 1 MG TABLET PO SCH (22:07)
[2023-09-05] MEDS: hydrOXYzine PAMOATE 25 MG CAPSULE (FP) PO PRN (22:07)
[2023-09-05] MEDS: OLANZapine 5 MG TABLET PO SCH (22:07)
[2023-09-05] MEDS: MELATONIN 5 MG TABLETS PO SCH (22:07)
[2023-09-05] MEDS: METHOCARBAMOL 500 MG TABLET PO PRN (22:08)
[2023-09-05] MEDS: THIAMINE HCL 100 MG TABLET (FP) PO SCH (22:08)
[2023-09-06] MEDS ORDERED: LORazepam 0.5 MG TABLET PO ONE (05:00)
[2023-09-06 08:46] VITALS: BP 120/71; PULSE 89; RESP 16; TEMP 98.1
[2023-09-06] MEDS: NICOTINE 14 MG/24 HOURS TOPICAL PATCH TD SCH (10:28)
[2023-09-06] MEDS: PRENATAL VITAMINS W/ FOLIC ACID TABLET (FP) PO SCH (10:28)
== END 2023-09-06 12:27 | disposition other institution (70) | DRG 775 ==
LOC: YASAS 14:39 → Y3N 16:53
PROVIDERS: ADMIT Allergy & Immunology; ATTEND Surgery
PROC: HZ2ZZZZ Detoxification Services for Substance Abuse Treatment (ICD-10-PCS; principal; 2023-09-02)
DX: F10.230 Alcohol dependence with withdrawal, uncomplicated (principal); F13.10 Sedative, hypnotic or anxiolytic abuse, uncomplicated; F15.10 Other stimulant abuse, uncomplicated; F17.210 Nicotine dependence, cigarettes, uncomplicated; F31.9 Bipolar disorder, unspecified; Z56.0 Unemployment, unspecified; Z59.00 Homelessness unspecified
CPT/HCPCS: 36415; 80053; 83036; 85027; 86780; 87635; 93005; 93010

== ENCOUNTER 2023-09-06 12:34 | Inpatient (IN) | payer OTHER ==
[2023-09-06 13:07] VITALS: RESP 16
[2023-09-06] MEDS ORDERED: NALOXONE HCL (KLOXXADO) 8 MG SPRAY NS PRN (14:19)
[2023-09-06] MEDS ORDERED: ACETAMINOPHEN 325 MG TABLET (FP) PO PRN (14:19)
[2023-09-06] MEDS ORDERED: LOPERAMIDE HCL 2 MG CAPSULE PO PRN (14:19)
[2023-09-06] MEDS ORDERED: MAG HYDROX/AL HYDROX/SIMETH 30 ML UNIT-DOSE CUP PO PRN (14:19)
[2023-09-06] MEDS ORDERED: NALOXONE HCL 0.4 MG/ML VIAL IVPUSH PRN (14:19)
[2023-09-06] MEDS ORDERED: COLLOIDAL OATMEAL 1 BAR EACH TP PRN (14:19)
[2023-09-06] MEDS ORDERED: guaiFENesin 600 MG TABLET.ER (FP) PO PRN (14:19)
[2023-09-06] MEDS ORDERED: MAGNESIUM HYDROX 2400MG/30ML ORAL SUSPENSION 30 ML CUP PO PRN (14:19)
[2023-09-06] MEDS ORDERED: POLYETHYLENE GLYCOL (HEALTHYLAX) 3350 17 GM PACKET PO PRN (14:19)
[2023-09-06] MEDS ORDERED: BENZONATATE 200 MG CAPSULE PO PRN (14:19)
[2023-09-06] MEDS ORDERED: BENZOCAINE/MENTHOL (CHLORASEPTIC ) LOZENGE MM PRN (14:19)
[2023-09-06] MEDS ORDERED: TUBERCULIN PPD 5 TU/0.1ML VIAL ID ONE (15:11)
[2023-09-06] MEDS: IBUPROFEN 400 MG TABLET (FP) PO PRN (15:33)
[2023-09-06] MEDS: METHOCARBAMOL 500 MG TABLET PO PRN (15:34)
[2023-09-06] MEDS: MELATONIN 5 MG TABLETS PO SCH (21:05)
[2023-09-06] MEDS: THIAMINE HCL 100 MG TABLET (FP) PO SCH (21:05)
[2023-09-06] MEDS: OLANZapine 5 MG TABLET PO SCH (21:06)
[2023-09-06] MEDS: hydrOXYzine PAMOATE 25 MG CAPSULE (FP) PO PRN (21:08)
[2023-09-06] MEDS: BENZTROPINE MESYLATE 1 MG TABLET PO SCH (21:34)
[2023-09-07] MEDS: PRENATAL VITAMINS W/ FOLIC ACID TABLET (FP) PO SCH (09:45)
[2023-09-07] MEDS: IBUPROFEN 600 MG TABLET (FP) PO PRN ×2 (09:46→21:33)
[2023-09-07] MEDS: METHOCARBAMOL 500 MG TABLET PO PRN ×2 (09:46→21:34)
[2023-09-07] MEDS: ATOMOXETINE HCL 40 MG CAPSULE PO SCH (10:45)
[2023-09-07] MEDS: MELATONIN 5 MG TABLETS PO SCH (21:31)
[2023-09-07] MEDS: THIAMINE HCL 100 MG TABLET (FP) PO SCH (21:31)
[2023-09-07] MEDS: BENZTROPINE MESYLATE 1 MG TABLET PO SCH (21:32)
[2023-09-07] MEDS: OLANZapine 5 MG TABLET PO SCH (21:32)
[2023-09-07] MEDS: hydrOXYzine PAMOATE 25 MG CAPSULE (FP) PO PRN (21:33)
[2023-09-08] MEDS: PRENATAL VITAMINS W/ FOLIC ACID TABLET (FP) PO SCH (10:13)
[2023-09-08] MEDS: METHOCARBAMOL 500 MG TABLET PO PRN ×2 (10:13→21:09)
[2023-09-08] MEDS: IBUPROFEN 600 MG TABLET (FP) PO PRN (10:13)
[2023-09-08] MEDS: ATOMOXETINE HCL 40 MG CAPSULE PO SCH (10:14)
[2023-09-08] MEDS: THIAMINE HCL 100 MG TABLET (FP) PO SCH (21:09)
[2023-09-08] MEDS: OLANZapine 5 MG TABLET PO SCH (21:09)
[2023-09-08] MEDS: BENZTROPINE MESYLATE 1 MG TABLET PO SCH (21:09)
[2023-09-08] MEDS: hydrOXYzine PAMOATE 25 MG CAPSULE (FP) PO PRN (21:09)
[2023-09-08] MEDS: MELATONIN 5 MG TABLETS PO SCH (21:09)
[2023-09-08] MEDS: IBUPROFEN 400 MG TABLET (FP) PO PRN (21:10)
[2023-09-09] MEDS: ATOMOXETINE HCL 40 MG CAPSULE PO SCH (09:50)
[2023-09-09] MEDS: PRENATAL VITAMINS W/ FOLIC ACID TABLET (FP) PO SCH (09:50)
[2023-09-09] MEDS: METHOCARBAMOL 500 MG TABLET PO PRN ×2 (09:51→21:27)
[2023-09-09] MEDS: IBUPROFEN 600 MG TABLET (FP) PO PRN ×2 (09:51→15:31)
[2023-09-09] MEDS ORDERED: NICOTINE POLACRILEX 4 MG GUM BUC PRN (15:40)
[2023-09-09] MEDS: OMEGA-3 ACID ETHYL ESTERS (FATTY-ACIDS) 1 GM CAPSULE (FP) PO SCH (21:26)
[2023-09-09] MEDS: BENZTROPINE MESYLATE 1 MG TABLET PO SCH (21:26)
[2023-09-09] MEDS: THIAMINE HCL 100 MG TABLET (FP) PO SCH (21:26)
[2023-09-09] MEDS: MELATONIN 5 MG TABLETS PO SCH (21:26)
[2023-09-09] MEDS: OLANZapine 5 MG TABLET PO SCH (21:26)
[2023-09-10] MEDS: PRENATAL VITAMINS W/ FOLIC ACID TABLET (FP) PO SCH (10:14)
[2023-09-10] MEDS: OMEGA-3 ACID ETHYL ESTERS (FATTY-ACIDS) 1 GM CAPSULE (FP) PO SCH ×2 (10:15→21:18)
[2023-09-10] MEDS: ATOMOXETINE HCL 40 MG CAPSULE PO SCH (10:15)
[2023-09-10] MEDS: METHOCARBAMOL 500 MG TABLET PO PRN ×2 (10:16→21:18)
[2023-09-10] MEDS: NICOTINE 21 MG/24 HOURS TOPICAL PATCH TD PRN (10:17)
[2023-09-10 10:48] VITALS: TEMP 97.8
[2023-09-10] MEDS: ESCITALOPRAM OXALATE 10 MG TABLET PO SCH (11:16)
[2023-09-10] MEDS: IBUPROFEN 600 MG TABLET (FP) PO PRN (13:01)
[2023-09-10] MEDS: THIAMINE HCL 100 MG TABLET (FP) PO SCH (21:18)
[2023-09-10] MEDS: OLANZapine 5 MG TABLET PO SCH (21:18)
[2023-09-10] MEDS: MELATONIN 5 MG TABLETS PO SCH (21:18)
[2023-09-10] MEDS: hydrOXYzine PAMOATE 25 MG CAPSULE (FP) PO PRN (21:19)
[2023-09-10] MEDS ORDERED: TRIHEXYPHENIDYL HCL 5 MG TABLET PO SCH (22:00)
[2023-09-11] MEDS: ESCITALOPRAM OXALATE 10 MG TABLET PO SCH (09:09)
[2023-09-11] MEDS: ATOMOXETINE HCL 40 MG CAPSULE PO SCH (09:09)
[2023-09-11] MEDS: PRENATAL VITAMINS W/ FOLIC ACID TABLET (FP) PO SCH (09:09)
[2023-09-11] MEDS: OMEGA-3 ACID ETHYL ESTERS (FATTY-ACIDS) 1 GM CAPSULE (FP) PO SCH (09:09)
[2023-09-11] MEDS: IBUPROFEN 600 MG TABLET (FP) PO PRN (09:11)
[2023-09-11] MEDS: NICOTINE 21 MG/24 HOURS TOPICAL PATCH TD PRN (09:11)
[2023-09-11] MEDS: METHOCARBAMOL 500 MG TABLET PO PRN (09:11)
[2023-09-11 09:41] VITALS: BP 132/87; PULSE 118
== END 2023-09-11 10:58 | disposition home or self-care (01) | DRG 772 ==
LOC: YASAS 12:34 → Y3W 12:47
PROVIDERS: ADMIT Allergy & Immunology; ATTEND Psychiatry & Neurology Pain Medicine
PROC: HZ42ZZZ Group Counseling for Substance Abuse Treatment, Cognitive-Behavioral (ICD-10-PCS; principal; 2023-09-06)
DX: F10.20 Alcohol dependence, uncomplicated (principal); F15.20 Other stimulant dependence, uncomplicated; F17.210 Nicotine dependence, cigarettes, uncomplicated; F19.282 Other psychoactive substance dependence with psychoactive substance-induced sleep disorder; F19.24 Other psychoactive substance dependence with psychoactive substance-induced mood disorder; F31.9 Bipolar disorder, unspecified; F41.9 Anxiety disorder, unspecified; Z59.00 Homelessness unspecified
CPT/HCPCS: 87635